=== PATIENT | female | born 1960 | race Hispanic/Latino ===

== ENCOUNTER → 2021-10-17 07:54 | Outpatient (CLI) | payer OTHER, SELFPAY ==
--- NOTE | 2021-10-17 | DI.MG.S_ITS ---
BILATERAL DIGITAL SCREENING MAMMOGRAM 3D/2D WITH CAD: 10/17/2021 Comparison is made to exams dated: 05/15/2019 mammogram - [facility], 10/02/2015 mammogram, and 07/01/2010 mammogram - [facility]. There are scattered fibroglandular elements in both breasts. Current study was also evaluated with a Computer Aided Detection (CAD) system. No significant masses, calcifications, or other findings are seen in either breast. There has been no significant interval change. IMPRESSION: NEGATIVE There is no mammographic evidence of malignancy. A 1 year screening mammogram is recommended. This exam was interpreted at Station ID: [id number]. NOTE: For mammograms, a report in lay terms will be sent to the patient. Approximately 15% of breast malignancies will not be visualized mammographically. In the management of a palpable breast mass, a negative mammogram must not discourage biopsy of a clinically suspicious lesion. Electronically Signed By: Mario Jay acr/zoë:10/17/2021 08:30:46 letter sent: Normal Exam ACR BI-RADS Category 1: Negative 3341F
== END ==
PROVIDERS: PCP Nurse Practitioner Family; Referring Provider Family Medicine; Visit Provider Family Medicine
DX: Z12.31 Encounter for screening mammogram for malignant neoplasm of breast (principal)
CPT/HCPCS: 77063; 77067

== ENCOUNTER → 2023-09-17 | Outpatient (CLI) | payer OTHER, SELFPAY ==
--- NOTE | 2023-09-17 11:52 | DI.MG.S_ITS ---
Patient Name: DENNIS CHEEMA date: 1960 Sex: F Attending Physician: Osmani Indications: Date: 09/17/2023 15:09 At the request of: ROSALIND RANDHAWA Procedure: MM screening mammo BI BILATERAL DIGITAL SCREENING MAMMOGRAM 3D/2D WITH CAD: 09/17/2023 CLINICAL: Routine screening. Comparison is made to exams dated: 10/17/2021 mammogram - [facility], 05/15/2019 mammogram - [facility], and 10/02/2015 mammogram - [facility]. There are scattered areas of fibroglandular density in both breasts (category b / 25%-50% glandular tissue). Current study was also evaluated with a Computer Aided Detection (CAD) system. No significant masses, calcifications, or other findings are seen in either breast. There has been no significant interval change. IMPRESSION: NEGATIVE There is no mammographic evidence of malignancy. A 1 year screening mammogram is recommended. Based on the Tyrer Cuzick model (a risk assessment model) the patient's lifetime risk is 5.8% and her 10 year risk is 2.7%. According to the ACR, ACS, and NCCN guidelines, an annual breast MRI exam along with mammogram is recommended if the patient's lifetime risk is 20% or greater. This exam was interpreted at Station ID: [id number]. Continued Report - Page 2 of 2 Patient Name: DENNIS CHEEMA date: 1960 Sex: F Attending Physician: Osmani Indications: Date: 09/17/2023 15:09 At the request of: ROSALIND RANDHAWA Procedure: MM screening mammo BI NOTE: For mammograms, a report in lay terms will be sent to the patient. Approximately 15% of breast malignancies will not be visualized mammographically. In the management of a palpable breast mass, a negative mammogram must not discourage biopsy of a clinically suspicious lesion. Electronically Signed By: Anish hidalgo/zoë:09/17/2023 15:09:01 letter sent: Normal Exam ACR BI-RADS Category 1: Negative 3341F
== END ==
LOC: MAMMO 11:44
PROVIDERS: PCP Family Medicine; Referring Provider Family Medicine; Visit Provider Family Medicine
DX: Z12.31 Encounter for screening mammogram for malignant neoplasm of breast (principal); R92.323 Mammographic fibroglandular density, bilateral breasts
CPT/HCPCS: 77063; 77067

== ENCOUNTER 2023-12-02 12:20 | Day surgery (SDC) | payer MEDICARE, OTHER, SELFPAY ==
[2023-12-02 12:53] VITALS: BP 130/66; PULSE 84; RESP 16; TEMP 36.5; O2SAT 99
[2023-12-02] MEDS: LACTATED RINGERS 1,000 ML 42 ML IV (13:12)
--- NOTE | 2023-12-02 13:30 | P.HP_ITS ---
History of Present Illness History of Present Illness Date Patient Seen: 12/02/23 Time Patient Seen: 13:30 Chief complaint: Screening Colonoscopy Narrative: Sandra is a 63-year-old woman who is here for a colonoscopy. She has never had 1 before. No known family history of colon cancer. [facility] Surgical History (Updated 11/30/17 @ 06:26 by Conversion Provider) Status post knee surgery (02/05/16) Family History (Updated 05/18/16 @ 00:00 by Conversion Provider) Grandmother Diabetes mellitus Heart disease Hypertension Social History Smoking Status: Never smoker alcohol intake: current Meds Home Medications and Allergies Home Medications Medication Instructions Recorded Confirmed Type fexofenadine-pseudoephedrine ER 1 t24 PO QDAY ##0 05/04/11 12/02/23 History 180 mg-240 mg tablet,ext.release 24 hr (Suzan-D 24 Hour) FLUTICASONE FUROATE (VERAMYST) 27.5 mcg intranasal QDAY ##10 12/08/11 12/02/23 Rx metformin 500 mg tablet,extended 1,000 mg (2 x 500 mg) PO BID #360 04/21/16 12/02/23 Rx release 24 hr (Glucophage XR) tabs triamcinolone acetonide 0.1 % 0 gm topical BID ##80 04/21/16 Rx topical ointment budesonide 180 mcg/actuation 0 INH BID #180 mcg 03/11/17 Rx breath activated powder inhaler (Pulmicort Flexhaler) ibuprofen 200 mg capsule 600 mg BID ##0 03/23/17 12/02/23 History peg 3350-sod sulf,wopju-bjl-evz 1,000 ml PO DIRECTED #2,000 mL 11/22/23 Rx 178.7-7.3-0.5-1.12-0.9 gram oral soln (Suflave) albuterol sulfate 90 mcg/actuation 2 puff inhalation QID PRN sob 12/02/23 12/02/23 History aerosol inhaler celecoxib 200 mg capsule 200 mg PO DAILY 12/02/23 12/02/23 History empagliflozin 25 mg tablet 25 mg PO DAILY 12/02/23 12/02/23 History (Jardiance) lisinopril 2.5 mg tablet 2.5 mg PO DAILY 12/02/23 12/02/23 History pioglitazone 15 mg tablet (Actos) 1 mg PO QDAY 12/02/23 12/02/23 History pravastatin 20 mg tablet 20 mg PO DAILY 12/02/23 12/02/23 History Allergies Allergy/AdvReac Type Severity Reaction Status Date / Time mold [MOLD] Allergy Intermediate ITCHING Verified 12/02/23 13:11 cedar leaf [CEDAR LEAF] Allergy Unknown Verified 12/02/23 13:11 CAT/DOG DANDER Allergy Severe ASTHMA Uncoded 11/10/17 13:02 DUST Allergy Intermediate ITCHY Uncoded 11/10/17 13:02 GRASSES Allergy Intermediate HIVES Uncoded 11/10/17 13:02 NUTS Allergy Intermediate PT UNSURE Uncoded 11/10/17 13:02 WHICH NUT/SWELLING ONE TIME EVENT OF ENTIRE BODY YELLOW JACKET Allergy Intermediate EXTREME Uncoded 11/10/17 13:02 LOCAL SWELLING ALIRIO TREE Allergy Unknown Uncoded 11/10/17 13:02 Exam Vital Signs (past 8 hours): - 12/02/23 12:53 Temperature 97.7 F Pulse Rate 84 Respiratory Rate 16 Blood Pressure 130/66 Pulse Oximetry 99 Oxygen Delivery Method Room Air Oxygen Delivery Method Room Air Const General: No acute distress Resp Effort & Inspection: normal respiratory effort Assessment & Plan Assessment and plan (1) Colon cancer screening: Status: Acute Plan We reviewed the risks and benefits of colonoscopy for colon cancer screening and she would like to proceed.
[2023-12-02 14:04] VITALS: BP 120/65; PULSE 64; RESP 15; TEMP 36.1; O2SAT 98
--- NOTE | 2023-12-02 14:08 | PM.OP.COLON ---
Operative Date/Time/Diagnoses Date of procedure: 12/02/23 Time of procedure: 14:08 Pre-op diagnosis: Colon cancer screening Post-op diagnosis: same Procedure & Clinicians Study performed: Colonoscopy Same procedure as scheduled: Yes Surgeon: Nathan Freedman Procedure Notes Procedure in detail: Surgeon: Ntahan Freedman MD Anesthesia: Kendra Vogel CRNA Procedure: The patient was brought to the endoscopy suite, placed in left lateral decubitus position. The patient was connected to monitoring devices. A time-out was performed. Sedation was administered. Once the patient was adequately sedated, a digital rectal exam was performed and was normal. The scope was then inserted and advanced to the cecum where the appendiceal orifice was identified and photographed. The scope was then slowly withdrawn over greater than 6 minutes. The mucosa was thoroughly inspected. No abnormalities were found. The scope was retroflexed in the rectum. No abnormalities were seen. The scope was straightened and removed. The patient was awakened and brought to recovery. Scope withdrawal time: 9 minutes Sedation time: 14 minutes EBL: 0 Findings: Normal colon Post-procedure Recommendations: Colonoscopy in 10 years Disposition: PACU
[2023-12-02 14:09] VITALS: BP 152/80; PULSE 87; RESP 16; O2SAT 98
[2023-12-02 14:14] VITALS: BP 137/64; PULSE 75; RESP 16; TEMP 36.2; O2SAT 99
== END 2023-12-02 14:26 | disposition home or self-care (01) ==
PROVIDERS: PCP Family Medicine; Referring Provider Surgery; Visit Provider Surgery
PROC: 0DJD8ZZ Inspection of Lower Intestinal Tract, Via Natural or Artificial Opening Endoscopic (ICD-10-PCS; CPT 45378; principal; 2023-12-02 13:30)
DX: Z12.11 Encounter for screening for malignant neoplasm of colon (principal)
CPT/HCPCS: G0121; J2704

== ENCOUNTER → 2024-02-29 11:48 | Outpatient (CLI) | payer MEDICARE, OTHER, SELFPAY ==
--- NOTE | 2024-02-29 11:50 | DI.RAD.S_ITS ---
PROCEDURE: XR DEXA AXIAL SKELETON INDICATIONS: POST MENOPAUSAL COMPARISON: None. FINDINGS: Lumbar Spine: Bone mineral density 0.855 g/cm2, T score -1.7 Left Hip: Bone mineral density is 0. 776 g/cm2, T score -1.4. Left Femoral Neck: Bone mineral density 0. 627 g/cm2, T score -2.0 Right Hip: Bone mineral density 0.797 g/cm2, T score -1.2 Right Femoral Neck: Bone mineral density 0.626 g/cm2, T score -2.0 Fracture Risk Calculation (when applicable): 10-year fracture risk of a major osteoporotic fracture 10% and of a hip fracture 0.8%. (T score greater or equal to -1.0 to: NORMAL) (T score from -1.1 to -2.4: OSTEOPENIA) (T score less than or equal to -2.5: OSTEOPOROSIS) IMPRESSION: There is osteopenia of the lumbar spine, bilateral hips and bilateral femoral necks. Follow-up guidelines as follows: Osteoporosis: Consider a repeat DEXA and Vertebral Fracture Assessment (VFA) exam in 2 years or sooner if medically necessary, to reassess this patient's status. Osteopenia: Consider a repeat DEXA in 2-3 years to reassess this patient's status, or if there is a new clinical indication. Normal: Consider a repeat DEXA in 5 years or sooner, or if there is a new clinical indication. All treatment decisions require clinical judgment and consideration of individual patient factors, including patient preferences, comorbidities, previous drug use, risk factors not captured in the FRAX model (e.g., frailty, falls, vitamin D deficiency, increased bone turnover, interval significant decline in bone density ) and possible under- or over-estimation of fracture risk by FRAX. In addition, the NOF Guide recommends that FDA-approved medical therapies be considered in postmenopausal women and men age >= 50 years with a: * Hip or vertebral (clinical or morphometric) fracture * T-score of <=-2.5 at the spine or hip * Ten-year fracture probability by FRAX of >= 3% for hip fracture or >=20% for major osteoporotic fracture. People with diagnosed cases of osteoporosis or at high risk for fracture should have regular bone mineral density tests. For patients eligible for Medicare, routine testing is allowed once every 2 years. The testing frequency can be increased to one year for patients who have rapidly progressing disease, those who are receiving or discontinuing medical therapy to restore bone mass, or have additional risk factors. Dictated by: Toño Zavala M.D. on 03/01/2024 at 8:30 Approved by: Toño Zavala M.D. on 03/01/2024 at 8:36
== END ==
PROVIDERS: PCP Family Medicine; Referring Provider Family Medicine; Visit Provider Family Medicine
DX: M85.89 Other specified disorders of bone density and structure, multiple sites (principal); Z78.0 Asymptomatic menopausal state
CPT/HCPCS: 77080

== ENCOUNTER → 2025-01-24 12:08 | Outpatient (CLI) | payer MEDICARE, OTHER, SELFPAY ==
[2025-01-28 01:07] LABS: ANA Screen, IFA Negative (.)
== END ==
LOC: LAB 12:09
PROVIDERS: PCP Family Medicine; Referring Provider Dermatology; Visit Provider Dermatology
DX: Z01.84 Encounter for antibody response examination (principal)
CPT/HCPCS: 36415; 86038

== ENCOUNTER → 2025-05-16 09:46 | Outpatient (CLI) | payer MEDICARE, OTHER, SELFPAY ==
--- NOTE | 2025-05-16 09:47 | DI.MG.S_ITS ---
MM screening mammo BI: 05/16/2025. BI-RADS: 1 CLINICAL: 64-year old female for bilateral screening mammogram. Tyrer-Cuzick lifetime risk of 3.6%. No personal or first-degree family history of breast cancer. PRIOR EXAMS 09/17/2023, 10/17/2021, 05/15/2019, 10/02/2015. MAMMOGRAPHY TECHNIQUE: 2D and 3D (tomosynthesis) digital mammographic views obtained, with additional images as needed for full coverage. Current study was also evaluated with a Computer Aided Detection (CAD) system. DENSITY B. There are scattered areas of fibroglandular density. MAMMOGRAPHY FINDINGS Bilateral: No suspicious mass, asymmetry, microcalcification, or other abnormality seen. IMPRESSION: * No evidence of malignancy. RECOMMENDATIONS Bilateral * Annual screening mammography. OVERALL ASSESSMENT CATEGORY BI-RADS-1: Negative. The [employer] recommends annual screening mammography beginning at age 40 for women with average risk of breast cancer. ELECTRONICALLY SIGNED: Deborah Guaman M.D. on 05/16/2025 at 10:44:59 PM PT Interpreting Station ID: [id number]
== END ==
LOC: MAMMO 09:47
PROVIDERS: PCP Physician Assistant; Referring Provider Physician Assistant; Visit Provider Physician Assistant
DX: Z12.31 Encounter for screening mammogram for malignant neoplasm of breast (principal)
CPT/HCPCS: 77063; 77067